=== PATIENT | female | born 1955 | race Caucasian/White ===

== ENCOUNTER → 2018-07-27 | Outpatient (CLI) | payer OTHER ==
[~2018-07-27] MED LIST: CETI-176 PO; NAPR220C12 PO
--- NOTE | 2018-07-27 18:09 | RADIOLOGY IMAGING REPORT ---
FACILITY: [facility] PATIENT NAME: Michelle Cyrstal : 1955 MR: [id number] V: [id number] EXAM DATE: ORDERING PHYSICIAN: ERIKA URBAN TECHNOLOGIST: Location: [facility] [place] Patient: Michelle Crystal : 1955 Visit/Account:[id number] Date of Sevice: 07/27/2018 PELVIC HISTORY: Uterine enlargement EXAMINATION: Transabdominal and transvaginal pelvic ultrasound with duplex Doppler evaluation. HISTORY: Uterine enlargement COMPARISON: None. FINDINGS: : Uterus: 6.6 x 2.8 x 3.3 cm cm Myometrium: Uterine fibroid seen measuring 2 x 2.5 cm in size in the posterior fundal region. Endometrium: Endometrium poorly visualized. What is visualized appears to be normal in appearance me asuring 5.6 mm. Cervix: Heterogenous abnormal appearing cervix fluid with punctate debris in the endocervical canal. Ovaries: Ovaries not identified Adnexa: negative Free pelvic fluid: none IMPRESSION: 1. Uterine fibroid identified. Endometrial stripe poorly visualized but normal where visualized 2. Heterogenous abnormal appearing cervix with the cervical fluid. Recommend clinical correlation a nd appropriate follow-up. Report Dictated By: Igor Hamm MD at 07/27/2018 5:53 PM Report E-Signed By: Igor Hamm MD at 07/27/2018 6:05 PM WSN:[email or web address]
== END ==
LOC: US 00:59
PROVIDERS: ATTEND Family Medicine
DX: D25.9 Leiomyoma of uterus, unspecified (principal)
CPT/HCPCS: 76856

== ENCOUNTER → 2018-08-01 | Outpatient (CLI) | payer OTHER | LOC: LAB 13:14 | PROVIDERS: ATTEND Family Medicine | DX: R79.0 Abnormal level of blood mineral (principal) | CPT/HCPCS: 36415; 81256 ==